=== PATIENT | female | born 2000 | race Caucasian/White ===

== ENCOUNTER → 2023-09-27 12:13 | Outpatient (REF) | payer BC, SELFPAY | LOC: RAD 12:13 | PROVIDERS: ATTENDING PHYSICIAN Nurse Practitioner | DX: S06.0X0A Concussion without loss of consciousness, initial encounter (principal); S09.90XA Unspecified injury of head, initial encounter | CPT/HCPCS: 70450 ==

== ENCOUNTER → 2025-06-19 13:47 | Outpatient (REF) | payer BC, SELFPAY | LOC: HWRAD 13:47 | DX: M79.18 Myalgia, other site (principal); J34.89 Other specified disorders of nose and nasal sinuses; R51.9 Headache, unspecified | CPT/HCPCS: 70486 ==